=== PATIENT | male | born 1995 | race Caucasian/White ===

== ENCOUNTER 2016-11-06 09:12 | Emergency (ER) | payer OTHER ==
[~2016-11-06] VITALS: Ht 180.3 cm; Wt 79.7 kg
[2016-11-06 09:13] VITALS: BP 134/67
[2016-11-06] MEDS ORDERED: CYCL10TA PO (09:53)
[2016-11-06] MEDS ORDERED: IBUP-1022 PO (09:53)
== END 2016-11-06 10:04 | disposition home or self-care (01) ==
LOC: M ED 09:12
DX: M54.40 Lumbago with sciatica, unspecified side (principal); M62.830 Muscle spasm of back

== ENCOUNTER 2017-05-31 08:34 | Emergency (ER) | payer OTHER | END 2017-05-31 09:36 | disposition home or self-care (01) | LOC: M ED 08:34 | DX: J06.9 Acute upper respiratory infection, unspecified (principal); F17.210 Nicotine dependence, cigarettes, uncomplicated | CPT/HCPCS: 87880 ==

== ENCOUNTER 2017-06-07 20:19 | Emergency (ER) | payer OTHER ==
[2017-06-07 22:02] LABS: HEMATOCRIT 38.6 % (42.0-52.0); HEMOGLOBIN 12.8 g/dl (13.5-17.5); MEAN CORPUSCULAR HEMOGLOBIN 28.2 pg (27.0-33.0); MEAN CORPUSCULAR HGB CONC 33.2 g/dl (32.0-36.5); PLATELET COUNT, AUTOMATED 301 10^3/uL (150-450); RED BLOOD COUNT 4.54 10^6/uL (4.30-6.10); RED CELL DISTRIBUTION WIDTH 12.2 % (11.5-14.5); WHITE BLOOD COUNT 12.7 10^3/uL (4.0-10.0)
== END 2017-06-07 22:33 | disposition home or self-care (01) ==
LOC: M ED 20:19
DX: J20.9 Acute bronchitis, unspecified (principal); R09.1 Pleurisy; F17.210 Nicotine dependence, cigarettes, uncomplicated
CPT/HCPCS: 71046